=== PATIENT | female | born 1960 | race Caucasian/White ===

== ENCOUNTER → 2018-02-05 16:34 | Outpatient (CLI) | payer BC, SELFPAY ==
--- NOTE | 2018-02-05 | DI.RAD.S_ITS ---
PROCEDURE: XR CHEST 2V INDICATIONS: R/V RIB FRACTURE TECHNIQUE: 2 views of the chest were acquired. COMPARISON: None. FINDINGS: Surgical changes and devices: None. Lungs and pleura: No pleural effusions or pneumothorax. Lungs are clear. Mediastinum: Mediastinal contours are normal. Heart size is normal. Bones and chest wall: Mild deformity of the right ninth rib although technically age-indeterminate.. Age-indeterminate mild anterior wedging of thoracolumbar vertebral body. Soft tissues appear unremarkable. IMPRESSION: No acute cardiopulmonary disease. Mild lateral right ninth rib deformity although this could be projectional artifact. Recommend correlation with point tenderness and if necessary further evaluation could be performed with dedicated rib series Dictated by: Jerad Castañeda M.D. on 02/05/2018 at 17:11 Approved by: Jerad Castañeda M.D. on 02/05/2018 at 17:16
== END ==
PROVIDERS: PCP Physician Assistant; Visit Provider Naturopath
DX: S22.31XA Fracture of one rib, right side, initial encounter for closed fracture (principal)
CPT/HCPCS: 71046

== ENCOUNTER → 2018-05-15 15:04 | Outpatient (CLI) | payer BC, SELFPAY ==
[2018-05-15 16:45] LABS: Alanine Aminotransferase 63 IU/L (9-52); Albumin 4.3 g/dL (3.5-5.0); Albumin Globulin Ratio 1.5 (1.0-2.8); Alkaline Phosphatase 79 U/L (38-126); Aspartate Aminotransferase 54 IU/L (14-36); Bilirubin Total 0.4 mg/dL (0.2-1.3); Bilirubin Unconjugated 0.2 mg/dL (0.0-1.1); Globulin 2.8 g/dL (1.7-4.1); HEMOLYSIS < 15 (0-50); Total Protein 7.1 g/dL (6.3-8.2)
== END ==
PROVIDERS: PCP Physician Assistant; Visit Provider Registered Nurse
DX: R94.5 Abnormal results of liver function studies (principal)
CPT/HCPCS: 36415; 80076

== ENCOUNTER → 2018-06-25 07:15 | Outpatient (CLI) | payer OTHER, SELFPAY ==
--- NOTE | 2018-06-25 | DI.RAD.S_ITS ---
PROCEDURE: XR CHEST 2V INDICATIONS: COUGH TECHNIQUE: 2 views of the chest were acquired. COMPARISON: [facility], CR, XR CHEST 2V, 02/05/2018, 16:45. FINDINGS: Surgical changes and devices: None. Lungs and pleura: Lungs are clear. No pleural effusions or pneumothorax. Mediastinum: The cardiac contours are within normal limits. The aorta demonstrates calcification and tortuosity. Bones and chest wall: No suspicious bony abnormalities. Age-appropriate bony degenerative changes are seen. There is a remote right inferior lateral rib fracture. Soft tissues appear unremarkable. IMPRESSION: No acute cardiopulmonary process is seen. If there is clinical concern for a developing pulmonary process, a short-term followup chest series (with PA and lateral views, performed in deep inspiration) is suggested for further evaluation. Dictated by: Osei Lund M.D. on 06/25/2018 at 8:42 Approved by: Osei Lund M.D. on 06/25/2018 at 8:43
== END ==
PROVIDERS: PCP Physician Assistant; Visit Provider Physician Assistant
DX: R05 Cough (principal)
CPT/HCPCS: 71046

== ENCOUNTER → 2018-08-22 19:01 | Outpatient (CLI) | payer OTHER, SELFPAY ==
--- NOTE | 2018-08-22 19:02 | DI.RAD.S_ITS ---
PROCEDURE: XR CHEST 2V INDICATIONS: worsening cough TECHNIQUE: 2 views of the chest were acquired. COMPARISON: [facility], CR, XR CHEST 2V, 02/05/2018, 16:45. FINDINGS: Surgical changes and devices: None. Lungs and pleura: There are confluent airspace opacities in the right upper and middle lobes consistent with consolidation. Left lung is clear. No pleural effusions or pneumothorax. Mediastinum: Mediastinal contours are normal. Heart size is normal. Bones and chest wall: No suspicious bony abnormalities. Soft tissues appear unremarkable. IMPRESSION: 1. Right upper and middle lobe consolidation consistent with pneumonia given clinical history. Consider followup to demonstrate resolution. Dictated by: Ba Shaw M.D. on 08/22/2018 at 19:57 Approved by: Ba Shaw M.D. on 08/22/2018 at 19:59
== END ==
PROVIDERS: PCP Physician Assistant; Visit Provider Physician Assistant
DX: R05 Cough (principal)
CPT/HCPCS: 71046

== ENCOUNTER → 2018-09-06 10:25 | Outpatient (CLI) | payer OTHER, SELFPAY ==
--- NOTE | 2018-09-06 10:26 | DI.RAD.S_ITS ---
PROCEDURE: XR CHEST 2V INDICATIONS: interval CXR, persistent PNA Sx TECHNIQUE: 2 views of the chest were acquired. COMPARISON: [facility], CR, XR CHEST 2V, 08/22/2018, 19:07. [facility], CR, XR CHEST 2V, 06/25/2018, 7:16. [facility], CR, XR CHEST 2V, 02/05/2018, 16:45. [facility], CT, CT CHEST ABD PELVIS W CON, 10/26/2015, 15:39. FINDINGS: Surgical changes and devices: Upper abdominal postoperative changes are seen. Lungs and pleura: Right upper lobe and right middle lobe infiltrates are seen. These infiltrates are improved compared to the prior plain film study dated 08/22/18. The left lung is clear. Low lung volumes are noted. This causes a crowded appearance to the lung markings and limits evaluation. Mediastinum: Mediastinal contours are normal. Heart size is normal. Bones and chest wall: No suspicious bony abnormalities. Age-appropriate bony degenerative changes are seen. Soft tissues appear unremarkable. IMPRESSION: Continued right upper lobe and right middle lobe infiltrates, which are improved compared to the prior chest x-ray. Dictated by: Osei Lund M.D. on 09/06/2018 at 9:45 Approved by: Osei Lund M.D. on 09/06/2018 at 9:47
== END ==
PROVIDERS: PCP Physician Assistant; Visit Provider Physician Assistant
DX: J18.9 Pneumonia, unspecified organism (principal)
CPT/HCPCS: 71046

== ENCOUNTER 2018-09-08 13:04 | Emergency (ER) | payer OTHER, SELFPAY ==
[2018-09-08 13:15] VITALS: BP 146/97; PULSE 72; RESP 16; TEMP 36.8; O2SAT 97
[2018-09-08 15:02] VITALS: BP 127/79; PULSE 77; RESP 16; O2SAT 98
--- NOTE | 2018-09-08 15:41 | ED_ITS ---
HPI - URI/Sore Throat General Chief Complaint: Upper Respiratory Symptoms Stated Complaint: EYES SWELLING POSSIBLE ALLERGIC REACTION Time Seen by Provider: 09/08/18 15:15 Source: patient and family Mode of arrival: ambulatory Limitations: no limitations History of Present Illness HPI Narrative: 50-year-old female nonsmoker presents with her in the chief complaint of ongoing cough, wheeze and shortness of breath over the past few months. She has had multiple visits to the walk-in clinic and chest x-rays demonstrating right-sided pneumonia. She has been on multiple courses of antibiotics and was started on Levaquin as recently as yesterday. She presents due to a concern that she may have had an allergic reaction to her 1st dose of Levaquin in which she developed some itching and swelling of her nose and swelling of her bilateral upper eyelids within 10-15 minutes of taking her 1st dose. At no point did she develop any tongue or throat swelling nor did she develop any trouble swallowing or difficulty breathing. Her allergic-type symptoms have long since resolved but she continues to cough and wants to know what she should take. She denies any systemic findings such as fever, shaking chills MD Complaint: cough Onset (ago): month(s) Duration: intermittent Severity: moderate Relieving factors: nothing Exacerbating factors: nothing Able to tolerate fluids by mouth: Yes Treatments prior to arrival: antibiotics Related Data Home Medications Medication Instructions Recorded Confirmed losartan 100 1 tab PO DAILY 08/22/18 09/08/18 mg-hydrochlorothiazide 25 mg tablet albuterol sulfate HFA 90 1 puff INHALATION PRN PRN #8 gram 09/06/18 09/08/18 mcg/actuation aerosol inhaler benzonatate 100 mg capsule 100 mg PO TID PRN #30 cap 09/06/18 09/08/18 esomeprazole magnesium 20 mg 20 mg PO DAILY cap 09/06/18 09/08/18 capsule,delayed release estradiol 0.025 mg/24 hr 1 patch TRANSDERMAL 2XW #24 each 09/06/18 09/08/18 semiweekly transdermal patch lamotrigine 200 mg tablet 200 mg PO DAILY #30 tab 09/06/18 09/08/18 quetiapine 25 mg tablet 75 mg PO DAILY #90 tab 09/06/18 09/08/18 codeine-guaifenesin [Guaiatussin 1 dose PO PRN PRN 09/08/18 09/08/18 AC] Previous Rx's Medication Instructions Recorded buspirone 15 mg PO BID #180 tab 02/26/16 amoxicillin-pot clavulanate 1 tab PO BID #14 tab 09/08/18 [Augmentin] Allergies Allergy/AdvReac Type Severity Reaction Status Date / Time latex Allergy Intermediate HIVES Verified 09/08/18 13:19 Penicillins Allergy Unknown UNKNOWN Verified 09/08/18 13:19 levofloxacin [From Levaquin] AdvReac Mild Swelling Verified 09/08/18 13:20 of the Eye Review of Systems Constitutional Denies chills, Denies fever(s), Denies lethargy and Denies weakness Eyes Denies change in vision, Denies eye discharge, Denies irritation and Denies loss of vision Comments: Bilateral upper eyelid swelling ENT Ears, Nose, Mouth, and Throat: Denies change in voice, Denies neck pain and Denies sore throat Cardiovascular Denies chest pain, Denies irregular heart rhythm, Denies lightheadedness, Denies palpitations, Denies dyspnea, Denies dyspnea on exertion and Denies orthopnea Respiratory Reports cough, Denies dyspnea, Denies dyspnea on exertion and Denies wheezing Gastrointestinal Gastrointestinal: Denies abdominal pain, Denies change in bowel habits, Denies diarrhea, Denies nausea and Denies vomiting Genitourinary Denies hematuria, Denies flank pain, Denies urinary incontinence and Denies urinary urgency Musculoskeletal Denies neck pain Integumentary/Breasts Denies pruritus, Denies erythema, Denies rash and Denies wounds Neurologic Denies confusion, Denies loss of vision and Denies weakness Psychiatric Denies anxiety, Denies confusion, Denies depression, Denies homicidal ideation and Denies suicidal ideation Endocrine Denies palpitations Hematologic/Lymphatic Denies easy bruising Allergic/Immunologic Denies wheezing PFSH Social History Smoking Status: Never smoker Social History Smoking Status: Never smoker Exam Narrative Exam Narrative: GENERAL: 58-year-old female appears younger than stated age, in no respiratory distress HEAD: Atraumatic. Normocephalic. No temporal or scalp tenderness. EYES: Pupils equal round and reactive. Extraocular motions intact. No scleral icterus. No swelling ENT: Nose without bleeding, purulent drainage or septal hematoma. Throat without erythema, tonsillar hypertrophy or exudate. Uvula midline. Airway patent. NECK: Trachea midline. No JVD or lymphadenopathy. Supple, nontender, no meningeal signs. CARDIOVASCULAR: Regular rate and rhythm without murmurs, gallops, or rubs. RESPIRATORY: Faint crackles in the right base GASTROINTESTINAL: Abdomen soft, non-tender, nondistended. No hepato- splenomegaly, or palpable masses. No guarding. EXTREMITIES: No clubbing, cyanosis, or edema. No joint tenderness, effusion, or edema noted. BACK: Nontender without deformity or crepitance. No flank tenderness. NEURO: AOx3. SKIN: No rash or erythema. Initial Vital Signs Initial Vital Signs: Vital Signs Temperature 98.2 F 09/08/18 13:15 Pulse Rate 72 09/08/18 13:15 Respiratory Rate 16 09/08/18 13:15 Blood Pressure 146/97 H 09/08/18 13:15 Pulse Oximetry 97 09/08/18 13:15 Course Course Narrative: I went down to diagnostic imaging to speak with the on-call radiologist. Reviewed multiple chest x-rays since April to discuss possibilities other than pneumonia. The patient had a relatively clear chest x- ray early in the year followed by chest x-ray showed an infiltrate in the right lung. There was no underlying nodule or mass. Furthermore over the past month the patient has infiltrate has interval improvement. He states this is almost certainly a pneumonia and doesn't see a need for advanced imaging at this time Reevaluation(s) Reevaluation #1: Patient has been on azithromycin, doxycycline, and most recen tly Levaquin. She has what sounds like an allergic reaction to Levaquin and this will be stopped. When inquired about her allergy to penicillin she states it was only when she was a baby and states she thinks she had a rash but knows it was not anything that involved swelling of her face, throat or breathing Vital Signs - 8 hr 09/08/18 13:15 09/08/18 15:02 Temperature 98.2 F Pulse Rate 72 77 Respiratory Rate 16 16 Blood Pressure 146/97 H Blood Pressure [Left Arm] 127/79 Pulse Oximetry 97 98 Discharge Plan Departure Patient Disposition: Home Clinical Impression: Pneumonia Qualifiers: Pneumonia type: due to unspecified organism Laterality: right Lung location: unspecified part of lung Qualified Code(s): J18.9 - Pneumonia, unspecified organism Discharge Date/Time: 09/08/18 15:54 Interventions: ED Discharge Assessment Last Done: 09/08/18 15:53 Instructions: DI for Pneumonia -- Adult Activity Restrictions/Additional Instructions: *You have been diagnosed with [ pneumonia ] *What to do: *Take medications as directed: Your prescription has been electronically transmitted to [facility] at your request *Follow up with your primary care provider in 2-3 days, call for an appointment. Let them know you were seen in the Emergency Department and that we ask that you be seen in follow up *Return to ER if you should have any new, worsening or concerning symptoms Prescriptions: New amoxicillin-pot clavulanate [Augmentin] 875-125 mg tablet 1 tab PO BID Qty: 14 RF: 0 No Action losartan-hydrochlorothiazide 100-25 mg tablet 1 tab PO DAILY RF: 0 lamotrigine 200 mg tablet 200 mg PO DAILY Qty: 30 RF: 0 quetiapine 25 mg tablet 75 mg PO DAILY Qty: 90 RF: 0 estradiol 0.025 mg/24 hr patch semiweekly 1 patch Transdermal 2XW Qty: 24 RF: 0 esomeprazole magnesium 20 mg capsule,delayed release(DR/EC) 20 mg PO DAILY RF: 0 benzonatate 100 mg capsule 100 mg PO TID PRN (Reason: Cough) Qty: 30 RF: 0 albuterol sulfate 90 mcg/actuation HFA aerosol inhaler 1 puff INHALATION PRN PRN (Reason: Shortness Of Breath) Qty: 8 RF: 0 buspirone 15 MG tablet 15 mg PO BID Qty: 180 RF: 5 codeine-guaifenesin [Guaiatussin AC] 10-100 mg/5 mL liquid 1 dose PO PRN PRN (Reason: Cough) RF: 0 Referrals: [facility] [Outside] Ellyn Hernandez PA-C [Primary Care Provider] -
--- NOTE | 2018-09-08 15:53 | PC.NURSE ---
Easy work of breathing, patient in no acute distress. Speaking in full sentences. States scant sputum production, intermittently. Mostly dry.
== END 2018-09-08 15:54 | disposition home or self-care (01) ==
PROVIDERS: Emergency Provider Emergency Medicine; PCP Physician Assistant
DX: J18.9 Pneumonia, unspecified organism (principal)
CPT/HCPCS: 99282; 99283

== ENCOUNTER → 2018-10-13 15:40 | Outpatient (CLI) | payer OTHER, SELFPAY ==
--- NOTE | 2018-10-13 | DI.RAD.S_ITS ---
PROCEDURE: XR CHEST 2V INDICATIONS: pneumonia of right lung TECHNIQUE: 2 views of the chest were acquired. COMPARISON: [facility], CR, XR CHEST 2V, 09/06/2018, 10:29. FINDINGS: Surgical changes and devices: None. Lungs and pleura: Near-complete resolution of the consolidated opacity seen in the previous study involving the right upper lobe and right lung base. There is residual patchy platelike atelectasis projecting in the right midlung. No pleural effusions or pneumothorax. Mediastinum: Mediastinal contours are normal. Heart size is normal. Bones and chest wall: No suspicious bony abnormalities. Soft tissues appear unremarkable. IMPRESSION: Near-complete resolution of multifocal right sided pneumonia since 09/06/18 as above. Dictated by: Jerad Castañeda M.D. on 10/13/2018 at 16:17 Approved by: Jerad Castañeda M.D. on 10/13/2018 at 16:18
== END ==
PROVIDERS: PCP Naturopath; Visit Provider Internal Medicine
DX: J18.9 Pneumonia, unspecified organism (principal)
CPT/HCPCS: 71046

== ENCOUNTER → 2018-12-15 15:57 | Outpatient (CLI) | payer OTHER, SELFPAY ==
--- NOTE | 2018-12-15 | DI.MG.S_ITS ---
BILATERAL DIGITAL SCREENING MAMMOGRAM 3D/2D WITH CAD WITH AUGMENTATION: 12/15/2018 CLINICAL: Routine screening. Family history of breast cancer. Comparison is made to exams dated: 03/02/2007 mammogram - [facility] and 11/02/2006 mammogram - [facility]. The tissue of both breasts is heterogeneously dense. This may lower the sensitivity of mammography. Current study was also evaluated with a Computer Aided Detection (CAD) system. Bilateral breast implants are intact. No significant masses, calcifications, or other findings are seen in either breast. There has been no significant interval change. IMPRESSION: NEGATIVE There is no mammographic evidence of malignancy. A 1 year screening mammogram is recommended. This exam was interpreted at Station ID: [id number]. NOTE: For mammograms, a report in lay terms will be sent to the patient. Approximately 15% of breast malignancies will not be visualized mammographically. In the management of a palpable breast mass, a negative mammogram must not discourage biopsy of a clinically suspicious lesion. Electronically Signed By: Len colindres/swapnil:12/15/2018 17:43:48 letter sent: Normal Exam ACR BI-RADS Category 1: Negative [id number]
== END ==
PROVIDERS: PCP Naturopath; Visit Provider Internal Medicine
DX: Z12.31 Encounter for screening mammogram for malignant neoplasm of breast (principal); Z80.3 Family history of malignant neoplasm of breast
CPT/HCPCS: 77063; 77067

== ENCOUNTER → 2019-06-19 07:57 | Outpatient (CLI) | payer OTHER, SELFPAY ==
[2019-06-19 09:36] LABS: Add Manual Diff / Slide Review NO; Basophils Absolute Auto 100 /uL (0-100); Basophils Percent Auto 1.3 % (0-2); Eosinophils Absolute Auto 300 /uL (0-450); Eosinophils Percent Auto 4.1 % (2-4); Hematocrit 41.8 % (36-46); Hemoglobin 14.5 g/dL (12.0-16.0); Lymphocytes Absolute Auto 2500 /uL (1100-4500); Lymphocytes Percent Auto 35.2 % (25-40); Mean Corpuscular HGB Conc 34.8 % (30-36); Mean Corpuscular Volume 91.9 fL (80-100); Monocytes Absolute Auto 600 /uL (0-900); Monocytes Percent Auto 8.9 % (3-14); Neutrophils Absolute Auto 3600 /uL (1500-7000); Neutrophils Percent Auto 50.5 % (50-75); Platelet Count 294 X10^3/uL (150-400); Red Blood Cell Count 4.55 X10^6/uL (4.0-5.2); Red Cell Distribution Width 13.8 % (11.6-14.8)
[2019-06-19 09:43] LABS: Hemoglobin A1C% w Est Avg Glu 5.3 % (4.0-6.0)
[2019-06-19 09:57] LABS: Alanine Aminotransferase 34 IU/L (<35); Albumin 4.4 g/dL (3.5-5.0); Albumin Globulin Ratio 1.4 (1.0-2.8); Alkaline Phosphatase 77 U/L (38-126); Aspartate Aminotransferase 34 IU/L (14-36); BUN Creatinine Ratio 22.5 (6-22); Bilirubin Total 0.6 mg/dL (0.2-1.3); Blood Urea Nitrogen 18 mg/dL (7-17); Calcium 9.8 mg/dL (8.4-10.2); Carbon Dioxide 31 mmol/L (22-32); Chloride 104 mmol/L (98-107); Cholesterol 238 mg/dL (140-199); Estimated Glomerular Filt Rate > 60.0 mL/min (>60); Globulin 3.1 g/dL (1.7-4.1); Glucose 77 mg/dL (70-100); HDL Cholesterol 59 mg/dL (40-60); HEMOLYSIS < 15 (0-50); LDL Cholesterol Calculated 158 mg/dL (<100); Potassium 4.3 mmol/L (3.4-5.1); Sodium 142 mmol/L (137-145); Total Protein 7.5 g/dL (6.3-8.2); Triglycerides 103 mg/dL (35-150)
[2019-06-19 10:27] LABS: Thyroid Stimulating Hormone 1.37 uIU/mL (0.47-4.68)
[2019-06-19 10:46] LABS: Vitamin B12 926 pg/mL (239-931)
[2019-06-22 14:59] LABS: Insulin Level Total 2.8 uIU/mL (< 19.7)
== END ==
PROVIDERS: PCP Naturopath; Referring Provider Naturopath; Visit Provider Naturopath
DX: Z00.00 Encounter for general adult medical examination without abnormal findings (principal); E88.81 Metabolic syndrome and other insulin resistance; R53.83 Other fatigue
CPT/HCPCS: 36415; 80053; 80061; 82607; 83036; 83525; 84443; 85025; 86900; 86901

== ENCOUNTER → 2020-04-12 10:12 | Outpatient (CLI) | payer OTHER, SELFPAY | PROVIDERS: PCP Naturopath; Referring Provider Internal Medicine; Visit Provider Internal Medicine | DX: M85.852 Other specified disorders of bone density and structure, left thigh (principal); Z78.0 Asymptomatic menopausal state; Z82.62 Family history of osteoporosis | CPT/HCPCS: 77080 ==

== ENCOUNTER → 2020-06-02 11:54 | Outpatient (CLI) | payer OTHER, SELFPAY ==
[2020-06-03 15:08] LABS: SS A Ro Sjogrens Antibody < 0.2 AI (0.0-0.9); SS B La Sjogrens Antibody 3.9 AI (0.0-0.9)
[2020-06-03 18:07] LABS: DNA (DS) Antibody 2 IU/mL (0-9)
[2020-06-06 10:40] LABS: Smooth Muscle Antibody 5 Units (0-19)
== END ==
PROVIDERS: PCP Naturopath; Referring Provider Naturopath; Visit Provider Naturopath
DX: M35.9 Systemic involvement of connective tissue, unspecified (principal); R76.0 Raised antibody titer
CPT/HCPCS: 36415; 83516; 86225; 86235

== ENCOUNTER → 2020-09-06 07:01 | Outpatient (CLI) | payer OTHER, SELFPAY ==
--- NOTE | 2020-09-06 | DI.RAD.S_ITS ---
PROCEDURE: XR CHEST 2V INDICATIONS: Gastro-esophageal reflux disease without esophagitis TECHNIQUE: 2 views of the chest were acquired. COMPARISON: [facility], CT, CT CHEST ABDOMEN PELVIS WITH CONTRAST, 09/23/2019, 14:56. [facility], CR, XR CHEST 2V, 10/13/2018, 15:50. [facility], CR, XR CHEST 2V, 09/06/2018, 10:29. FINDINGS: Surgical changes and devices: Esophagogastric junction constrictor appears present all in the EG junction area. The patient reported this was placed approximately 2 weeks ago.. Lungs and pleura: Lungs are clear. No pleural effusions or pneumothorax. Mediastinum: Mediastinal contours are normal. Heart size is normal. Bones and chest wall: No suspicious bony abnormalities. Soft tissues appear unremarkable. IMPRESSION: Esophagogastric junction constrictor device in place, no free air beneath the diaphragm. Dictated by: Yordy Martinez M.D. on 09/06/2020 at 8:49 Approved by: Yordy Martinez M.D. on 09/06/2020 at 8:51
== END ==
PROVIDERS: PCP Naturopath; Referring Provider Surgery; Visit Provider Surgery
DX: K21.9 Gastro-esophageal reflux disease without esophagitis (principal)
CPT/HCPCS: 71046

== ENCOUNTER → 2021-03-19 17:40 | Outpatient (CLI) | payer OTHER, SELFPAY ==
--- NOTE | 2021-03-19 17:42 | DI.MG.S_ITS ---
BILATERAL DIGITAL SCREENING MAMMOGRAM 3D/2D WITH CAD WITH AUGMENTATION: 03/19/2021 CLINICAL: Patient presents for routine screening. S/P bilateral augmentation. Comparison is made to exam dated: 12/15/2018 [facility]. The tissue of both breasts is heterogeneously dense. This may lower the sensitivity of mammography. Current study was also evaluated with a Computer Aided Detection (CAD) system. Bilateral breast implants are intact. No significant masses, calcifications, or other findings are seen in either breast. There has been no significant interval change. IMPRESSION: NEGATIVE There is no mammographic evidence of malignancy. A 1 year screening mammogram is recommended. This exam was interpreted at Station ID: [id number]. NOTE: For mammograms, a report in lay terms will be sent to the patient. Approximately 15% of breast malignancies will not be visualized mammographically. In the management of a palpable breast mass, a negative mammogram must not discourage biopsy of a clinically suspicious lesion. Electronically Signed By: Silvana tovar/swapnil:03/20/2021 11:14:05 letter sent: Normal Exam ACR BI-RADS Category 1: Negative [id number]
== END ==
PROVIDERS: PCP Naturopath; Referring Provider Naturopath; Visit Provider Naturopath
DX: Z12.31 Encounter for screening mammogram for malignant neoplasm of breast (principal); Z98.82 Breast implant status
CPT/HCPCS: 77063; 77067

== ENCOUNTER → 2021-03-31 10:10 | Outpatient (CLI) | payer OTHER, SELFPAY ==
--- NOTE | 2021-03-31 | DI.RAD.S_ITS ---
PROCEDURE: XR CHEST 2V INDICATIONS: CHECK PLACEMENT OF LINX TECHNIQUE: 2 views of the chest were acquired. COMPARISON: [facility], CR, XR CHEST 2V, 09/06/2020, 7:21. FINDINGS: Surgical changes and devices: Gastroesophageal constrictor ring device redemonstrated in the region of the gastroesophageal junction. Lungs and pleura: Lungs are clear. No pleural effusions or pneumothorax. Mediastinum: Mediastinal contours are normal. Heart size is normal. Bones and chest wall: No suspicious bony abnormalities. Soft tissues appear unremarkable. IMPRESSION: 1. Gastroesophageal constrictor ring device redemonstrated in the region of the gastroesophageal junction. Dictated by: Ba Shaw M.D. on 03/31/2021 at 16:37 Approved by: Ba Shaw M.D. on 03/31/2021 at 16:39
== END ==
PROVIDERS: PCP Naturopath; Referring Provider Surgery; Visit Provider Surgery
DX: K21.9 Gastro-esophageal reflux disease without esophagitis (principal); Z45.89 Encounter for adjustment and management of other implanted devices
CPT/HCPCS: 71046

== ENCOUNTER → 2022-01-09 07:01 | Outpatient (CLI) | payer OTHER, SELFPAY ==
--- NOTE | 2022-01-09 07:03 | DI.US.S_ITS ---
PROCEDURE: US ABDOMEN COMPLETE INDICATIONS: Intra-abdominal and pelvic swelling, mass and lump TECHNIQUE: Real-time scanning was performed of the abdominal and retroperitoneal organs, with image documentation. COMPARISON: [facility], CT, CT CHEST ABDOMEN PELVIS WITH CONTRAST, 09/23/2019, 14:56. FINDINGS: Liver: Liver is normal in size and homogeneous in echotexture. Gallbladder: No findings of gallstones or sludge are seen. The gallbladder wall is not thickened, measuring 3 mm or less. No specific pericholecystic fluid is seen. The sonographic Santiago sign is negative. Biliary ducts: Intrahepatic bile ducts are non-dilated. Extrahepatic bile duct caliber measures 5 mm. Normal is 6-7 mm or less in diameter, or 10 mm or less post-cholecystectomy. Pancreas: Not seen, obscured by overlying bowel gas. Spleen: Spleen is normal in size and homogeneous in echotexture. Kidneys: Kidneys are normal in size and echotexture. Right kidney measures 10.9 cm long; left kidney measures 9.3 cm long. No hydronephrosis or nephrolithiasis. No solid masses. Aorta: Visualized aorta is normal in caliber at less than 3 cm. Iliacs: Proximal common iliac arteries are normal in caliber at less than 2.5 cm. IVC: Intrahepatic inferior vena cava is patent. Miscellaneous: No free abdominal fluid. Additional, dedicated ultrasound scanning is performed at the area of clinical concern involving the epigastric region. No focal ultrasound abnormalities are seen within this region. No findings of masses or hernias can be seen. IMPRESSION: Negative for masses or hernias within the epigastric region. Dictated by: Osei Lund M.D. on 01/09/2022 at 8:46 Approved by: Osei Lund M.D. on 01/09/2022 at 8:47
== END ==
PROVIDERS: PCP Naturopath; Referring Provider Naturopath; Visit Provider Naturopath
DX: R19.00 Intra-abdominal and pelvic swelling, mass and lump, unspecified site (principal)
CPT/HCPCS: 76700

== ENCOUNTER → 2022-03-13 07:01 | Outpatient (CLI) | payer OTHER, SELFPAY ==
[2022-03-13 08:02] LABS: Hemoglobin A1C% w Est Avg Glu 5.3 % (4.0-6.0)
[2022-03-13 08:07] LABS: Add Manual Diff / Slide Review NO; Basophils Absolute Auto 100 /uL (0-100); Eosinophils Absolute Auto 400 /uL (0-450); Eosinophils Percent Auto 4.8 % (2-4); Hematocrit 40.3 % (36-46); Hemoglobin 13.3 g/dL (12.0-16.0); Lymphocytes Absolute Auto 2700 /uL (1100-4500); Lymphocytes Percent Auto 29.5 % (25-40); Mean Corpuscular Hemoglobin 30.8 PG (26-34); Mean Corpuscular Volume 93.2 fL (80-100); Monocytes Absolute Auto 800 /uL (0-900); Monocytes Percent Auto 8.7 % (3-14); Neutrophils Absolute Auto 5100 /uL (1500-7000); Platelet Count 282 X10^3/uL (150-400); Red Blood Cell Count 4.33 X10^6/uL (4.0-5.2); Red Cell Distribution Width 13.9 % (11.6-14.8); White Blood Cell Count 9.1 X10^3/uL (4.5-11.0)
[2022-03-13 08:21] LABS: Alanine Aminotransferase 40 IU/L (<35); Albumin Globulin Ratio 1.5 (1.0-2.8); Alkaline Phosphatase 70 U/L (38-126); Aspartate Aminotransferase 31 IU/L (14-36); BUN Creatinine Ratio 23.2 (6-22); Bilirubin Total 0.5 mg/dL (0.2-1.3); Blood Urea Nitrogen 19 mg/dL (7-17); Carbon Dioxide 31 mmol/L (22-32); Chloride 103 mmol/L (98-107); Cholesterol 206 mg/dL (140-199); Estimated Glomerular Filt Rate > 60 mL/min (>60); Globulin 2.6 g/dL (1.7-4.1); Glucose 78 mg/dL (80-110); HDL Cholesterol 65 mg/dL (40-60); HEMOLYSIS < 15 (0-50); LDL Cholesterol Calculated 124 mg/dL (<100); Potassium 3.9 mmol/L (3.4-5.1); Sodium 141 mmol/L (137-145); Total Protein 6.6 g/dL (6.3-8.2); Triglycerides 87 mg/dL (35-150)
[2022-03-13 08:22] LABS: Lithium 0.2 mmol/L (0.6-1.2)
[2022-03-13 09:29] LABS: Folate 19.9 ng/mL (2.76-20.0); Vitamin B12 612 pg/mL (239-931)
== END ==
PROVIDERS: PCP Naturopath; Referring Provider Psychiatry & Neurology Psychiatry; Visit Provider Psychiatry & Neurology Psychiatry
DX: Z79.899 Other long term (current) drug therapy (principal)
CPT/HCPCS: 36415; 80053; 80061; 80178; 82607; 82746; 83036; 84443; 85025

== ENCOUNTER → 2022-06-07 11:44 | Outpatient (CLI) | payer OTHER, SELFPAY ==
--- NOTE | 2022-06-07 | DI.US.S_ITS ---
PROCEDURE: US ABDOMEN LIMITED INDICATIONS: Intra-abdominal and pelvic swelling, mass and lump TECHNIQUE: Real-time focused scanning was performed of the abdomen, with image documentation. COMPARISON: [facility], CT, CT CHEST ABDOMEN PELVIS WITH CONTRAST, 09/23/2019, 14:56. [facility], US, US ABDOMEN COMPLETE, 01/09/2022, 7:24. FINDINGS: At the midline abdominal wall exactly in the area of current clinical concern there is a 1 cm diameter peritoneal defect through which a short segment of bowel loop protruded at time of the examination. At the completion of the study this portion of bowel had completely retracted back into the peritoneal space. IMPRESSION: Intermittent bowel herniation through 1 cm midline peritoneal defect into the subcutaneous fat, exactly at the area of current clinical concern. Surgical consultation may be warranted. Dictated by: Yordy Martinez M.D. on 06/07/2022 at 14:14 Approved by: Yordy Martinez M.D. on 06/07/2022 at 14:18
== END ==
PROVIDERS: PCP Naturopath; Referring Provider Naturopath; Visit Provider Naturopath
DX: R19.00 Intra-abdominal and pelvic swelling, mass and lump, unspecified site (principal)
CPT/HCPCS: 76705

== ENCOUNTER → 2022-10-30 07:31 | Outpatient (CLI) | payer OTHER, SELFPAY ==
[2022-10-30 08:51] LABS: Alanine Aminotransferase 29 IU/L (<35); Albumin 4.2 g/dL (3.5-5.0); Albumin Globulin Ratio 1.5 (1.0-2.8); Alkaline Phosphatase 81 U/L (38-126); Aspartate Aminotransferase 32 IU/L (14-36); BUN Creatinine Ratio 23.3 (6-22); Bilirubin Total 0.6 mg/dL (0.2-1.3); Blood Urea Nitrogen 17 mg/dL (7-17); Calcium 9.4 mg/dL (8.4-10.2); Carbon Dioxide 30 mmol/L (22-32); Chloride 104 mmol/L (98-107); Cholesterol 231 mg/dL (140-199); Estimated Glomerular Filt Rate > 60 mL/min (>60); Globulin 2.8 g/dL (1.7-4.1); Glucose 82 mg/dL (80-110); HDL Cholesterol 73 mg/dL (40-60); HEMOLYSIS < 15 (0-50); LDL Cholesterol Calculated 136 mg/dL (<100); Potassium 3.9 mmol/L (3.4-5.1); Sodium 140 mmol/L (137-145); Triglycerides 112 mg/dL (35-150)
[2022-10-30 08:53] LABS: Add Manual Diff / Slide Review NO; Basophils Absolute Auto 100 /uL (0-100); Basophils Percent Auto 1.2 % (0-2); Eosinophils Absolute Auto 200 /uL (0-450); Eosinophils Percent Auto 3.2 % (2-4); Hematocrit 39.8 % (36-46); Hemoglobin 13.5 g/dL (12.0-16.0); Lymphocytes Absolute Auto 2100 /uL (1100-4500); Mean Corpuscular HGB Conc 33.9 % (30-36); Mean Corpuscular Hemoglobin 31.5 PG (26-34); Mean Corpuscular Volume 92.8 fL (80-100); Monocytes Absolute Auto 600 /uL (0-900); Monocytes Percent Auto 9.8 % (3-14); Neutrophils Absolute Auto 3600 /uL (1500-7000); Neutrophils Percent Auto 54.8 % (50-75); Platelet Count 251 X10^3/uL (150-400); Red Blood Cell Count 4.29 X10^6/uL (4.0-5.2); Red Cell Distribution Width 14.6 % (11.6-14.8); White Blood Cell Count 6.6 X10^3/uL (4.5-11.0)
[2022-10-30 08:57] LABS: Lithium < 0.2 mmol/L (0.6-1.2)
[2022-10-30 09:26] LABS: Thyroid Stimulating Hormone 1.06 uIU/mL (0.47-4.68)
[2022-10-31 04:38] LABS: Labcorp Hemoglobin (Hb) A1c 5.5 % (4.8-5.6)
[2022-11-01 06:36] LABS: Insulin Level Total 4.7 uIU/mL (2.6-24.9)
== END ==
PROVIDERS: PCP Naturopath; Referring Provider Naturopath; Visit Provider Naturopath
DX: E78.00 Pure hypercholesterolemia, unspecified (principal); R94.5 Abnormal results of liver function studies; Z51.81 Encounter for therapeutic drug level monitoring
CPT/HCPCS: 36415; 80053; 80061; 80178; 83036; 83525; 84443; 85025

== ENCOUNTER → 2022-11-27 11:54 | Outpatient (CLI) | payer OTHER, SELFPAY ==
--- NOTE | 2022-11-27 11:57 | DI.CT.S_ITS ---
PROCEDURE: CT ABDOMEN PELVIS WO CON INDICATIONS: Ventral hernia without obstruction or gangrene TECHNIQUE: After the administration of oral contrast, 5 mm thick sections acquired from the diaphragms to the symphysis. 5 mm coronal and sagittal reformats were performed. For radiation dose reduction, the following was used: automated exposure control, adjustment of mA and/or kV according to patient size. COMPARISON: [facility], CT, CT CHEST ABDOMEN PELVIS WITH CONTRAST, 09/23/2019, 14:56. FINDINGS: Lower thorax: The lung bases are clear. Heart size normal. No hiatal hernia. Partially imaged bilateral breast prosthesis with capsular calcification on the right Liver: Normal in size and attenuation. No contour deformity present. Small multifocal hepatic hypodensities, likely cysts Biliary system: No calcified cholelithiasis or pericholecystic inflammation. No intra or extrahepatic bile duct dilatation. Pancreas: Unremarkable without mass or inflammation evident. Spleen: Normal in size and density. Adrenals: Low-density left adrenal nodules measure up to 2 cm, and remain unchanged from the prior Reproductive system: Unremarkable as visualized. Urinary system: Normal renal size and attenuation. No renal calculi, hydronephrosis, or solid mass present. Urinary bladder unremarkable. Gastrointestinal system: Large amount of fecal debris throughout the colon, particularly in the left upper quadrant. There is a prior gastric surgery as well as distal esophageal ring in place. Appendix: No findings to suggest acute appendicitis. Peritoneal spaces: No mesenteric or retroperitoneal adenopathy. No free air. No free fluid. Vasculature: The IVC, aorta and iliac vasculature are unremarkable. Abdominal wall: Abdominal wall intact without evidence of ventral or inguinal hernias. Musculoskeletal: Normal bone mineralization. No acute fractures. IMPRESSION: 1. Large amount of fecal debris throughout the colon. No obstruction or evidence of ventral hernia. 2. Stable left adrenal nodules, unchanged from 2020 3. Prior gastric surgery and distal esophageal ring in place. Approved by: Son Genao M.D. on 11/27/2022 at 18:36
== END ==
PROVIDERS: PCP Naturopath; Referring Provider Surgery; Visit Provider Surgery
DX: K43.9 Ventral hernia without obstruction or gangrene (principal); E27.9 Disorder of adrenal gland, unspecified
CPT/HCPCS: 74176

== ENCOUNTER → 2023-08-22 15:00 | Outpatient (CLI) | payer OTHER, SELFPAY ==
--- NOTE | 2023-08-22 | DI.MG.S_ITS ---
BILATERAL DIGITAL SCREENING MAMMOGRAM 3D/2D WITH CAD WITH AUGMENTATION: 08/22/2023 CLINICAL: Routine screening. Family history of breast cancer. Comparison is made to exams dated: 03/19/2021 mammogram, 12/15/2018 mammogram - [facility], and 04/18/2011 mammogram - [facility]. There are scattered areas of fibroglandular density in both breasts (category b / 25%-50% glandular tissue). Current study was also evaluated with a Computer Aided Detection (CAD) system. Bilateral breast implants are stable. No significant masses, calcifications, or other findings are seen in either breast. There has been no significant interval change. IMPRESSION: NEGATIVE There is no mammographic evidence of malignancy. A 1 year screening mammogram is recommended. Based on the Tyrer Cuzick model (a risk assessment model) the patient's lifetime risk is 12.1% and her 10 year risk is 6.0%. According to the ACR, ACS, and NCCN guidelines, an annual breast MRI exam along with mammogram is recommended if the patient's lifetime risk is 20% or greater. This exam was interpreted at Station ID: [id number]. NOTE: For mammograms, a report in lay terms will be sent to the patient. Approximately 15% of breast malignancies will not be visualized mammographically. In the management of a palpable breast mass, a negative mammogram must not discourage biopsy of a clinically suspicious lesion. Electronically Signed By: Kiara vasquez/[email or web address]:08/22/2023 16:19:40 letter sent: Normal Exam ACR BI-RADS Category 1: Negative [id number]
--- NOTE | 2023-08-22 | DI.RAD.S_ITS ---
PROCEDURE: XR DEXA AXIAL SKELETON INDICATIONS: OSTEOPOROSIS SCREENING COMPARISON: [facility], CR, XR DEXA AXIAL SKELETON, 04/12/2020, 10:20. FINDINGS: Lumbar Spine: Bone mineral density is 0.729 g/cm2, T score -1.7, dissimilar scan type does not allow for statistical comparison. Right Hip: Bone mineral density 0.729 g/cm2, T score -1.7, dissimilar scan type does not allow for statistical comparison. Right Femoral Neck: Bone mineral density 0.634 g/cm2, T score -1.9, osteopenia. Left Hip: Bone mineral density 0.682 g/cm2, T score -2.1, dissimilar scan type does not allow for statistical comparison. Left Femoral Neck: Bone mineral density 0.583 g/cm2, T score -2.4, osteopenia. Fracture Risk Calculation (when applicable): 10-year fracture risk of a major osteoporotic fracture 12 and of a hip fracture 2.0. (T score greater or equal to -1.0 to: NORMAL) (T score from -1.1 to -2.4: OSTEOPENIA) (T score less than or equal to -2.5: OSTEOPOROSIS) IMPRESSION: Osteopenia. Follow-up guidelines as follows: Osteoporosis: Consider a repeat DEXA and Vertebral Fracture Assessment (VFA) exam in 2 years or sooner if medically necessary, to reassess this patient's status. Osteopenia: Consider a repeat DEXA in 2-3 years to reassess this patient's status, or if there is a new clinical indication. Normal: Consider a repeat DEXA in 5 years or sooner, or if there is a new clinical indication. Dictated by: Lebron Lugo M.D. on 08/22/2023 at 16:31 Approved by: Lebron Lugo M.D. on 08/22/2023 at 16:38
== END ==
PROVIDERS: PCP Naturopath; Referring Provider Internal Medicine; Visit Provider Internal Medicine
DX: Z12.31 Encounter for screening mammogram for malignant neoplasm of breast (principal); Z80.3 Family history of malignant neoplasm of breast; R92.323 Mammographic fibroglandular density, bilateral breasts; N95.1 Menopausal and female climacteric states; M85.89 Other specified disorders of bone density and structure, multiple sites
CPT/HCPCS: 77063; 77067; 77080

== ENCOUNTER → 2024-08-27 07:58 | Outpatient (CLI) | payer OTHER, SELFPAY ==
[2024-08-27 09:46] LABS: Add Manual Diff / Slide Review NO; Basophils Absolute Auto 100 /uL (0-100); Basophils Percent Auto 1.6 % (0-2); Eosinophils Absolute Auto 200 /uL (0-450); Eosinophils Percent Auto 3.4 % (2-4); Hematocrit 42.7 % (36-46); Hemoglobin 14.5 g/dL (12.0-16.0); Lymphocytes Absolute Auto 2600 /uL (1100-4500); Lymphocytes Percent Auto 35.9 % (25-40); Mean Corpuscular Hemoglobin 30.9 PG (26-34); Mean Corpuscular Volume 90.7 fL (80-100); Monocytes Absolute Auto 600 /uL (0-900); Monocytes Percent Auto 8.8 % (3-14); Neutrophils Absolute Auto 3700 /uL (1500-7000); Neutrophils Percent Auto 50.3 % (50-75); Platelet Count 259 X10^3/uL (150-400); Red Blood Cell Count 4.71 X10^6/uL (4.0-5.2); Red Cell Distribution Width 14.8 % (11.6-14.8); White Blood Cell Count 7.3 X10^3/uL (4.5-11.0)
[2024-08-27 10:08] LABS: Hemoglobin A1C% w Est Avg Glu 5.3 % (4.0-6.0)
[2024-08-27 10:32] LABS: Alanine Aminotransferase 78 IU/L (<35); Albumin 4.5 g/dL (3.5-5.0); Alkaline Phosphatase 85 U/L (38-126); Aspartate Aminotransferase 57 IU/L (14-36); BUN Creatinine Ratio 20.9 (6-22); Bilirubin Total 0.9 mg/dL (0.2-1.3); Blood Urea Nitrogen 18 mg/dL (7-17); Calcium 9.9 mg/dL (8.4-10.2); Carbon Dioxide 29 mmol/L (22-32); Chloride 105 mmol/L (98-107); Cholesterol 180 mg/dL (140-199); Estimated Glomerular Filt Rate > 60 mL/min (>60); Globulin 2.3 g/dL (1.7-4.1); Glucose 81 mg/dL (70-99); HDL Cholesterol 79 mg/dL (40-60); HEMOLYSIS < 15 (0-50); LDL Cholesterol Calculated 85 mg/dL (<100); Potassium 4.3 mmol/L (3.4-5.1); Sodium 142 mmol/L (137-145); Total Protein 6.8 g/dL (6.3-8.2); Triglycerides 78 mg/dL (35-150)
[2024-08-27 10:35] LABS: Iron 123 ug/dL (37-170)
[2024-08-27 10:39] LABS: Lithium < 0.2 mmol/L (0.6-1.2)
[2024-08-27 11:05] LABS: TSH w/ Reflex to FT4 0.72 uIU/mL (0.47-4.68)
[2024-08-27 11:08] LABS: Ferritin 36 ng/mL (11-264)
== END ==
PROVIDERS: PCP Internal Medicine; Referring Provider Psychiatry & Neurology Psychiatry; Visit Provider Psychiatry & Neurology Psychiatry
DX: F31.81 Bipolar II disorder (principal); Z79.899 Other long term (current) drug therapy
CPT/HCPCS: 36415; 80053; 80061; 80175; 80178; 82728; 83036; 83540; 84443; 85025

== ENCOUNTER → 2024-09-14 07:25 | Outpatient (CLI) | payer OTHER, SELFPAY ==
[2024-09-14 08:36] LABS: Lithium 0.3 mmol/L (0.6-1.2)
== END ==
PROVIDERS: PCP Internal Medicine; Referring Provider Psychiatry & Neurology Psychiatry; Visit Provider Psychiatry & Neurology Psychiatry
DX: Z79.899 Other long term (current) drug therapy (principal); F31.81 Bipolar II disorder
CPT/HCPCS: 36415; 80178

== ENCOUNTER → 2024-09-22 08:02 | Outpatient (CLI) | payer OTHER, SELFPAY ==
[2024-09-22 08:45] LABS: Lithium 0.5 mmol/L (0.6-1.2)
== END ==
PROVIDERS: PCP Internal Medicine; Referring Provider Psychiatry & Neurology Psychiatry; Visit Provider Psychiatry & Neurology Psychiatry
DX: Z79.899 Other long term (current) drug therapy (principal)
CPT/HCPCS: 36415; 80178

== ENCOUNTER 2024-10-30 10:15 | Emergency (ER) | payer OTHER, SELFPAY ==
[2024-10-30] VITALS (10 sets, daily range): BP systolic 118–140; BP diastolic 64–78; PULSE 59–67; RESP 15–18; TEMP 36.7; O2SAT 94–99; BMI 25.6
--- NOTE | 2024-10-30 10:26 | ED.WEAKNESS ---
HPI - Weakness General Chief complaint: Weakness Stated complaint: Dehydrated/nauseated; weak, poss drug reaction Time Seen by Provider: 10/30/24 10:18 History of Present Illness HPI Narrative: 64-year-old female history of hypertension dyslipidemia bipolar ADHD insomnia GERD osteopenia chronic low back pain low iron levels recently presents with nonbilious nonbloody nausea vomiting after taking sips of oxycodone syrup for her chronic back pain this past Friday having difficulty holding down solids and liquids at this time. Patient had a normal bowel movement is passing gas and not having any diarrhea or constipation and denies chest pain, back pain, fever, chills, body aches, cough, runny nose, sore throat. Patient given Zofran by her sister who is a nurse practitioner but still feeling dehydrated and weak at this time. Other than what is stated 14 point review of system is negative. Related Data Home Medications ?Medication ?Instructions ?Recorded ?Confirmed losartan 100 1 tab PO DAILY 08/22/18 07/26/24 mg-hydrochlorothiazide 25 mg tablet estradiol 0.025 mg/24 hr 1 patch transdermal 2XW #24 ea 09/06/18 07/26/24 semiweekly transdermal patch famotidine 20 mg tablet 40 mg PO BID 04/20/24 07/26/24 red rice yeast .Route 06/30/24 07/26/24 Previous Rx's ?Medication ?Instructions ?Recorded rosuvastatin 5 mg tablet 5 mg PO DAILY #90 tabs 06/30/24 dextroamphetamine-amphetamine 10 10 mg PO BID #180 tabs 07/26/24 mg tablet (Adderall) lamotrigine 200 mg tablet 200 mg PO DAILY #90 tabs 07/26/24 lorazepam 0.5 mg tablet 0.5 mg PO BID PRN anxiety #20 tabs 07/26/24 quetiapine 25 mg tablet 25 mg PO BEDTIME #90 tabs 07/26/24 lithium carbonate 450 mg 450 mg PO BEDTIME #30 tabs 09/14/24 tablet,extended release ondansetron 4 mg disintegrating 4 mg PO Q8H PRN nausea and 10/30/24 tablet vomiting #30 tabs Allergies Allergy/AdvReac Type Severity Reaction Status Date / Time latex Allergy Intermediate HIVES Verified 10/30/24 10:29 Penicillins Allergy Unknown UNKNOWN Verified 10/30/24 10:29 levofloxacin (From Levaquin) AdvReac Mild Swelling Verified 10/30/24 10:29 of the Eye Review of Systems Review of Systems ROS Unobtainable: All systems reviewed & are unremarkable except as noted in HPI and below Patient History Medical History (Updated 10/30/24 @ 13:14 by Finesse Gonsalez DO) Osteopenia Mixed hyperlipidemia Essential hypertension Wears glasses Chronic back pain Mumps Chicken pox GERD (gastroesophageal reflux disease) Gastric ulcer GIST (gastrointestinal stroma tumor), malignant, colon ADHD Bipolar 2 disorder YOEL (generalized anxiety disorder) Surgical History (Updated 05/02/24 @ 19:52 by Selena Gordon) Anesthesia History of surgery (~2020) History of partial hysterectomy History of gastric surgery (~2015) Family History (Updated 05/02/24 @ 19:54 by Selena Gordon) Father Parkinson's disease Dementia Mother Dementia Sister Breast cancer Grandfather History of heart disease Social History Smoking Status: Never smoker alcohol intake frequency: holidays/special occasions only Exam Narrative Exam Narrative: GENERAL: [64] year old patient appears stated age. Well-developed patient, in mild distress. HEAD: Atraumatic. Normocephalic. EYES: Pupils equal round and reactive. Extraocular motions intact. No scleral icterus. No injection or drainage. ENT: Nose without bleeding, purulent drainage. Throat without erythema, tonsillar hypertrophy or exudate. Airway patent. NECK: Trachea midline. Non tender CARDIOVASCULAR: Regular rate and rhythm without murmurs, gallops, or rubs. RESPIRATORY: Clear to auscultation. Breath sounds equal bilaterally. No wheezes, rales, or rhonchi. GASTROINTESTINAL: Abdomen soft, non-tender, nondistended. EXTREMITIES: No edema or joint tenderness. BACK: Nontender without deformity or crepitance. No flank tenderness. NEURO: AOx3. SKIN: No rash or erythema of visible areas Initial Vital Signs Initial Vital Signs: Vital Signs Pulse Rate 67 10/30/24 10:22 Blood Pressure 135/73 10/30/24 10:22 Pulse Oximetry 98 10/30/24 10:22 Course Orders Ordered: ED Orders 10/30/24 10:55 CBC Auto Diff [Complete Blood Count AUTO DIFF] Stat CMP [Comprehensive Metabolic Panel] Stat Discontinued Medications Lactated Ringer's (Lactated Ringers) 1,000 mls @ 1,000 mls/hr IV BOLUS ONE Stop: 10/30/24 11:44 Last Infusion: 10/30/24 12:33 Dose: Infused Documented By: Admin: 10/30/24 11:08 Dose: 1,000 mls/hr Documented By: ADA Ketorolac Tromethamine (Ketorolac 30 Mg/Ml Vial) 30 mg IV NOW ONE Stop: 10/30/24 10:46 Last Admin: 10/30/24 11:07 Dose: 30 mg Documented By: ADA Vital Signs Vital signs: Vital Signs - 8 hr 10/30/24 10:22 10/30/24 10:22 10/30/24 10:29 Temperature 98.1 F Pulse Rate 67 65 Respiratory Rate 18 Blood Pressure 135/73 135/73 Pulse Oximetry 98 98 Oxygen Delivery Method Room Air 10/30/24 10:30 10/30/24 10:30 Temperature Pulse Rate 61 Respiratory Rate Blood Pressure 129/75 Pulse Oximetry 98 Oxygen Delivery Method MDM - Weakness Lab Data 10/30/24 10:55 10/30/24 10:55 Labs: Lab Results 10/30/24 Range/Units 10:55 WBC 5.6 (4.5-11.0) X10^3/uL RBC 4.66 (4.0-5.2) X10^6/uL Hgb 14.8 (12.0-16.0) g/dL Hct 43.4 (36-46) % MCV 93.2 (80-100) fL MCH 31.8 (26-34) PG MCHC 34.1 (30-36) % RDW 14.2 (11.6-14.8) % Plt Count 232 (150-400) X10^3/uL Neut % (Auto) 59.0 (50-75) % Lymph % (Auto) 24.1 L (25-40) % [place] % (Auto) 13.8 (3-14) % Eos % (Auto) 2.6 (2-4) % Baso % (Auto) 0.5 (0-2) % Neut # (Auto) 3300 (4634-8466) /uL Lymph # (Auto) 1300 (4275-6588) /uL [place] # (Auto) 800 (0-900) /uL Eos # (Auto) 100 (0-450) /uL Baso # (Auto) 0 (0-100) /uL Sodium 136 L (137-145) mmol/L Potassium 4.5 (3.4-5.1) mmol/L Chloride 100 (98-107) mmol/L Carbon Dioxide 24 (22-32) mmol/L BUN 19 H (7-17) mg/dL Creatinine 0.85 (0.52-1.04) mg/dL Estimated GFR > 60 (>60) mL/min BUN/Creatinine Ratio 22.4 H (6-22) Glucose 74 (70-99) mg/dL Calcium 9.5 (8.4-10.2) mg/dL Total Bilirubin 0.8 (0.2-1.3) mg/dL AST 47 H (14-36) IU/L ALT 39 H (<35) IU/L Alkaline Phosphatase 65 (38-126) U/L Total Protein 6.9 (6.3-8.2) g/dL Albumin 4.1 (3.5-5.0) g/dL Globulin 2.8 (1.7-4.1) g/dL Albumin/Globulin Ratio 1.5 (1.0-2.8) MDM Narrative Medical decision making narrative: Vital signs nurse triage note medication list previous ER visits in all imaging studies reviewed. Patient was offered CT scan but declined. Patient given LR 1 L bolus and will be discharged on Zofran prescription. Differential diagnosis includes accidental drug ingestion, side effects medication, dehydration, electrolyte derangement, viral. Return with new or worsening symptoms hydrated start with clear liquid diet advance as tolerated. Discharge Plan Departure Patient Disposition: Home Clinical Impression: Nausea and vomiting, Acute dehydration Instructions: DI for Dehydration -- Adult Activity Restrictions/Additional Instructions: Return with new or worsening symptoms. Take your medicines as directed. Clear liquid diet advance as tolerated. Keep hydrated. Follow up PCP 1-2 weeks if no improvement in symptoms. Prescriptions: New ondansetron 4 mg tablet,disintegrating 4 mg PO Q8H PRN (Reason: nausea and vomiting) Qty: 30 0RF No Action losartan-hydrochlorothiazide 100-25 mg tablet 1 tab PO DAILY estradiol 0.025 mg/24 hr patch semiweekly 1 patch Transdermal 2XW Qty: 24 famotidine 20 mg tablet 40 mg PO BID dextroamphetamine-amphetamine [Adderall] 10 mg tablet 10 mg PO BID Qty: 180 0RF Rx Instructions: administer doses at least 4-6 hours apart lamotrigine 200 mg tablet 200 mg PO DAILY Qty: 90 3RF quetiapine 25 mg tablet 25 mg PO BEDTIME Qty: 90 3RF lorazepam 0.5 mg tablet 0.5 mg PO BID PRN (Reason: anxiety) Qty: 20 0RF lithium carbonate 450 mg tablet extended release 450 mg PO BEDTIME Qty: 30 3RF red rice yeast .Route Rx Instructions: one daily rosuvastatin 5 mg tablet 5 mg PO DAILY Qty: 90 3RF Referrals: Srinivas Gillis MD [Primary Care Provider, Internal Medicine] Stand Alone Forms: Patient Portal/API
[2024-10-30 11:07] LABS: Add Manual Diff / Slide Review NO; Hematocrit 43.4 % (36-46); Hemoglobin 14.8 g/dL (12.0-16.0); Lymphocytes Absolute Auto 1300 /uL (1100-4500); Mean Corpuscular HGB Conc 34.1 % (30-36); Mean Corpuscular Hemoglobin 31.8 PG (26-34); Mean Corpuscular Volume 93.2 fL (80-100); Platelet Count 232 X10^3/uL (150-400)
[2024-10-30] MEDS: KETOROLAC 30 MG/ML VIAL IV (11:07)
[2024-10-30] MEDS: LACTATED RINGERS 1,000 ML 1000 ML IV (11:08)
[2024-10-30 11:44] LABS: Alanine Aminotransferase 39 IU/L (<35); Albumin 4.1 g/dL (3.5-5.0); Albumin Globulin Ratio 1.5 (1.0-2.8); Alkaline Phosphatase 65 U/L (38-126); Blood Urea Nitrogen 19 mg/dL (7-17); Calcium 9.5 mg/dL (8.4-10.2); Carbon Dioxide 24 mmol/L (22-32); Chloride 100 mmol/L (98-107); Estimated Glomerular Filt Rate > 60 mL/min (>60); Globulin 2.8 g/dL (1.7-4.1); Glucose 74 mg/dL (70-99); HEMOLYSIS 97 (0-50); Sodium 136 mmol/L (137-145); Total Protein 6.9 g/dL (6.3-8.2)
[2024-10-30 11:45] LABS: Potassium 4.5 mmol/L (3.4-5.1)
== END 2024-10-30 13:35 | disposition home or self-care (01) ==
PROVIDERS: Emergency Provider Family Medicine; PCP Internal Medicine
DX: R11.2 Nausea with vomiting, unspecified (principal); E86.0 Dehydration
CPT/HCPCS: 36415; 80053; 85025; 96361; 96374; 99284; J1885

== ENCOUNTER → 2025-04-08 15:45 | Outpatient (CLI) | payer OTHER, SELFPAY ==
--- NOTE | 2025-04-08 15:49 | DI.MRI.S_ITS ---
PROCEDURE: MR LUMBAR SPINE WO CON INDICATIONS: chronic lower back pain TECHNIQUE: Noncontrast sagittal T1 spin echo and T2 fast echo, sagittal STIR, and T2 fast spin echo through the lumbar spine. In cases with scoliosis, additional coronal T2 fast spin echo may be performed. COMPARISON: None. FINDINGS: Image quality: Excellent. Alignment and Curvature: There is normal bony alignment. Bone Marrow: Marrow is of normal overall signal. No acute vertebral body compression fractures. Spinal Cord: Conus medullaris terminates at the L1-L2 level. Visualized cord demonstrates normal signal and size. Paraspinous Soft Tissues: No paravertebral masses. T12-L1: Normal appearance. L1-L2: Normal appearance. L2-L3: Disc bulge. Early facet hypertrophy. No canal stenosis or foraminal stenosis. L3-L4: Minimal disc bulge. Mild facet hypertrophy. No canal stenosis or foraminal stenosis. L4-L5: Mild disc bulge. Prominent facet hypertrophy. No canal stenosis or foraminal stenosis. L5-S1: Mild disc bulge. Facet hypertrophy. This is somewhat prominent on the left. No canal stenosis or foraminal stenosis. IMPRESSION: 1. No canal stenosis or foraminal stenosis. 2. Multilevel facet arthropathy. Dictated by: Vaibhav Centeno M.D. on 04/09/2025 at 5:37 Approved by: Vaibhav Centeno M.D. on 04/09/2025 at 5:40
--- NOTE | 2025-04-08 15:49 | DI.MRI.S_ITS ---
PROCEDURE: MR HIP LT WO CON INDICATIONS: chronic lower back pain TECHNIQUE: Noncontrast coronal T1 spin echo and STIR through the bony pelvis. Coronal and axial T2 fast spin echo with fat saturation, sagittal T1 spin echo, and oblique axial T2 fast spin echo with fat saturation through the hip. COMPARISON: None. FINDINGS: Image quality: Excellent. Bones and joints: Mild to moderate bilateral hip joint osteoarthritic changes are seen with superior joint space narrowing, subchondral sclerosis and a small marginal osteophyte formation. No intraosseous lesions or fractures. No avascular necrosis of the femoral heads. Degenerative disc disease in visualized lower lumbar spine is seen. Tendons and ligaments: Distal left gluteus medius and minimus tendinosis at their insertions on greater trochanter is seen. No fluid distension of trochanteric bursa. The iliopsoas tendon appears intact, without adjacent bursal fluid collections or evidence for impingement syndrome. Tendinosis involving left hamstring tendon origins at ischial tuberosity is seen. Labrum and cartilage: Thinning of articulating cartilage over left femoral head. T2 hyperintense signal and fraying involving superior anterior acetabular labrum consistent with superior anterior acetabular labral tear. Soft tissues: Visualized muscles demonstrate normal bulk and internal signal. Quadratus femoris muscle demonstrates no internal edema to suggest ischiofemoral impingement. The proximal sciatic neurovascular bundle appears normal adjacent to the hamstring tendons. No free pelvic fluid. Bladder wall thickness is normal. Genitourinary structures and bowel loops appear normal where visualized. IMPRESSION: 1. Oaef-ea-aaoxifge bilateral hip joint osteoarthritis. No fracture or dislocation. No evidence of avascular necrosis of femoral head. 2. Tendinosis involving distal left gluteus medius and minimus tendons. Tendinosis also seen involving left hamstring tendon origins at ischial tuberosity. 3. Finding is suggestive of superior anterior left acetabular labral tear. Dictated by: Kimo Jacobs M.D. on 04/08/2025 at 20:30 Approved by: Kimo Jacobs M.D. on 04/08/2025 at 20:33
== END ==
LOC: MRI 15:48
PROVIDERS: Family Provider Orthopaedic Surgery; PCP Internal Medicine; Referring Provider Internal Medicine; Visit Provider Pharmacist
DX: M16.0 Bilateral primary osteoarthritis of hip (principal); M47.816 Spondylosis without myelopathy or radiculopathy, lumbar region; M47.817 Spondylosis without myelopathy or radiculopathy, lumbosacral region; M67.952 Unspecified disorder of synovium and tendon, left thigh; M54.50 Low back pain, unspecified; G89.29 Other chronic pain
CPT/HCPCS: 72148; 73721